=== PATIENT | female | born 1955 | race Asian ===

== ENCOUNTER 2020-07-18 09:22 | Emergency (ER) | payer MEDICAID, MEDICARE ==
[2020-07-18] MEDS ORDERED: Sodium Chloride 0.9% 10 ML Syringe FLUSH PRN (10:02)
[2020-07-18] MEDS ORDERED: Ketorolac 30 MG/ML SDV IVPUSH ONE (10:04)
[2020-07-18] MEDS ORDERED: Metoclopramide 10 MG/2 ML SDV IVPUSH ONE (10:04)
[2020-07-18] MEDS ORDERED: diphenhydrAMINE 50 MG/ML SDV IVPUSH ONE (10:04)
[2020-07-18] MEDS ORDERED: Iopamidol 755 Mg/ML 100 ML Bottle IVPUSH ONE (10:38)
[2020-07-18] MEDS ORDERED: Sodium Chloride 0.9% 10 ML Syringe FLUSH ONE (10:38)
[2020-07-18] MEDS ORDERED: Sodium Chloride 0.9% 100 ML IV SCH (10:45)
--- NOTE | 2020-07-18 12:10 | EDM.PDOC ---
ED HPI GENERAL MEDICAL PROBLEM - General Chief Complaint: Headache Stated Complaint: HEADACHE X 5 DAYS /NECK PAIN Time Seen by Provider: 07/18/20 09:54 Source of Information: Reports: Patient History Limitations: Reports: Language Barrier - History of Present Illness INITIAL COMMENTS - FREE TEXT/NARRATIVE: The patient is speak Estonian and I had the I pad with with court interpreter. She has a headache on the right side of her head and neck for a few days. She also has no energy. She has no fever or chills. She has no cough. She has no chest pain or shortness of breath. She has no abdominal pain, nausea or vomiting. She has generalized weakness. She has a history of A-fib and hypertension. Onset: Gradual Duration: Day(s): Location: Reports: Head Quality: Reports: Ache Severity: Moderate Improves with: Reports: None Worsens with: Reports: None Associated Symptoms: Reports: Headaches. Denies: Chest Pain, Cough, Fever/Chills, Nausea/Vomiting, Shortness of Breath Headache Pain Score (Numeric/FACES): 6 - Related Data Allergies Allergy/AdvReac Type Severity Reaction Status Date / Time No Known Allergies Allergy Verified 07/18/20 09:50 Home Meds: Home Meds Pantoprazole [ProTONIX] 1 tab PO DAILY 09/10/14 [History] Warfarin [Coumadin] 01/25/15 [History] carvediloL [Coreg] 1 tab PO BID 01/25/15 [History] Amiodarone [Cordarone] 200 mg PO DAILY 07/18/20 [History] Bumetanide 0.5 mg PO DAILY 07/18/20 [History] Levothyroxine [Synthroid] 50 mcg PO ACBREAKFAST 07/18/20 [History] Spironolactone [Aldactone] 25 mg PO DAILY 07/18/20 [History] Ubidecarenone [Co Q-10] 100 mg PO DAILY 07/18/20 [History] Valsartan 1 tab PO DAILY 07/18/20 [History] atorvaSTATin [Lipitor] 20 mg PO BEDTIME 07/18/20 [History] lisinopriL [Lisinopril] 1 tab PO DAILY 07/18/20 [History] Past Medical History Endocrine/Metabolic History: Reports: Diabetes, Type II - Past Surgical History Cardiovascular Surgical History: Reports: Other (See Below) 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 Social & Family History - Tobacco Use Smoking Status *Q: Never Smoker - Caffeine Use Caffeine Use: Reports: Coffee - Recreational Drug Use Recreational Drug Use: No ED ROS GENERAL - Review of Systems Review Of Systems: See Below Constitutional: Reports: No Symptoms HEENT: Reports: No Symptoms Respiratory: Reports: No Symptoms Cardiovascular: Reports: No Symptoms Endocrine: Reports: No Symptoms GI/Abdominal: Reports: No Symptoms : Reports: No Symptoms Musculoskeletal: Reports: No Symptoms Skin: Reports: No Symptoms Neurological: Reports: Headache - Physical Exam Exam: See Below Exam Limited By: No Limitations General Appearance: Alert, No Apparent Distress Ears: Normal External Exam Nose: Normal Inspection Head Exam: Atraumatic, Normocephalic Neck: Normal Inspection, Supple, Non-Tender Respiratory/Chest: No Respiratory Distress, Lungs Clear, Normal Breath Sounds Cardiovascular: Regular Rate, Rhythm, No Edema, No Murmur GI/Abdominal: Soft, Non-Tender, No Organomegaly, No Mass Neuro Exam (Abbreviated): Alert, Oriented, No Motor/Sensory Deficits Extremities: Normal Inspection Course - Vital Signs Last Recorded V/S: Last Vital Signs Temp 97.5 F 07/18/20 13:34 Pulse 106 H 07/18/20 13:34 Resp 20 07/18/20 13:34 BP 101/66 07/18/20 13:34 Pulse Ox 95 07/18/20 12:35 - Orders/Labs/Meds Orders: Active Orders 24 hr Category Date Time Status Cardiac Monitoring [RC] . DIRECTED Care 07/18/20 10:02 Active Oxygen Therapy [RC] PRN Care 07/18/20 10:02 Active Peripheral IV Care [RC] . DIRECTED Care 07/18/20 10:03 Active Ang Neck [CT] Stat Exams 07/18/20 10:03 Ordered CXR [Chest 1V Frontal] [CR] Stat Exams 07/18/20 12:09 Taken Head wo Cont [CT] Stat Exams 07/18/20 10:03 Taken Sodium Chloride 0.9% [Normal Saline] 100 ml Med 07/18/20 10:45 Active IV ASDIRECTED Sodium Chloride 0.9% [Saline Flush] Med 07/18/20 10:02 Active 10 ml FLUSH ASDIRECTED PRN Peripheral IV Insertion Adult [OM.PC] Stat Oth 07/18/20 10:02 Ordered Medication Orders Sodium Chloride (Normal Saline) 100 mls @ 60 mls/hr IV ASDIRECTED RUDDY Last Admin: 07/18/20 11:31 Dose: 60 mls/hr Documented by: SERENITY Sodium Chloride (Saline Flush) 10 ml FLUSH ASDIRECTED PRN PRN Reason: Keep Vein Open Last Admin: 07/18/20 10:33 Dose: 10 ml Documented by: DEMARCO Labs: Laboratory Tests 07/18/20 07/18/20 07/18/20 Range/Units 10:47 10:47 10:47 WBC 3.91 L (3.98-10.04) K/mm3 RBC 4.09 (3.98-5.22) M/mm3 Hgb 12.3 (11.2-15.7) gm/dl Hct 37.8 (34.1-44.9) % MCV 92.4 (79.4-94.8) fl MCH 30.1 (25.6-32.2) pg MCHC 32.5 (32.2-35.5) g/dl RDW Std Deviation 44.1 (36.4-46.3) fL Plt Count 163 L (182-369) K/mm3 MPV 10.1 (9.4-12.3) fl Neut % (Auto) 69.0 (34.0-71.1) % Lymph % (Auto) 19.2 L (19.3-51.7) % Ford % (Auto) 10.7 (4.7-12.5) % Eos % (Auto) 0.5 L (0.7-5.8) Baso % (Auto) 0.3 (0.1-1.2) % Neut # (Auto) 2.70 (1.56-6.13) K/mm3 Lymph # (Auto) 0.75 L (1.18-3.74) K/mm3 Ford # (Auto) 0.42 H (0.24-0.36) K/mm3 Eos # (Auto) 0.02 L (0.04-0.36) K/mm3 Baso # (Auto) 0.01 (0.01-0.08) K/mm3 ESR 10 (0-20) mm/hr Sodium 139 D (136-145) mEq/L Potassium 3.7 (3.5-5.1) mEq/L Chloride 104 D (98-107) mEq/L Carbon Dioxide 23 D (21-32) mEq/L Anion Gap 15.7 H (5-15) BUN 10 (7-18) mg/dL Creatinine 1.0 (0.55-1.02) mg/dL Est Cr Clr Drug Dosing TNP Estimated GFR (MDRD) 55 (>60) mL/min BUN/Creatinine Ratio 10.0 L (14-18) Glucose 95 (80-115) mg/dL Calcium 8.2 L D (8.5-10.1) mg/dL Total Bilirubin 0.4 (0.2-1.0) mg/dL AST 45 H (15-37) U/L ALT 71 H (14-59) U/L Alkaline Phosphatase 67 (46-116) U/L C-Reactive Protein 1.2 H* (<1.0) mg/dL Total Protein 7.0 (6.4-8.2) g/dl Albumin 3.5 (3.4-5.0) g/dl Globulin 3.5 gm/dL Albumin/Globulin Ratio 1.0 (1-2) SARS-CoV-2 RNA (MELODY) (NEGATIVE) 07/18/20 Range/Units 11:04 WBC (3.98-10.04) K/mm3 RBC (3.98-5.22) M/mm3 Hgb (11.2-15.7) gm/dl Hct (34.1-44.9) % MCV (79.4-94.8) fl MCH (25.6-32.2) pg MCHC (32.2-35.5) g/dl RDW Std Deviation (36.4-46.3) fL Plt Count (182-369) K/mm3 MPV (9.4-12.3) fl Neut % (Auto) (34.0-71.1) % Lymph % (Auto) (19.3-51.7) % Ford % (Auto) (4.7-12.5) % Eos % (Auto) (0.7-5.8) Baso % (Auto) (0.1-1.2) % Neut # (Auto) (1.56-6.13) K/mm3 Lymph # (Auto) (1.18-3.74) K/mm3 Ford # (Auto) (0.24-0.36) K/mm3 Eos # (Auto) (0.04-0.36) K/mm3 Baso # (Auto) (0.01-0.08) K/mm3 ESR (0-20) mm/hr Sodium (136-145) mEq/L Potassium (3.5-5.1) mEq/L Chloride (98-107) mEq/L Carbon Dioxide (21-32) mEq/L Anion Gap (5-15) BUN (7-18) mg/dL Creatinine (0.55-1.02) mg/dL Est Cr Clr Drug Dosing Estimated GFR (MDRD) (>60) mL/min BUN/Creatinine Ratio (14-18) Glucose (80-115) mg/dL Calcium (8.5-10.1) mg/dL Total Bilirubin (0.2-1.0) mg/dL AST (15-37) U/L ALT (14-59) U/L Alkaline Phosphatase (46-116) U/L C-Reactive Protein (<1.0) mg/dL Total Protein (6.4-8.2) g/dl Albumin (3.4-5.0) g/dl Globulin gm/dL Albumin/Globulin Ratio (1-2) SARS-CoV-2 RNA (MELODY) Positive H (NEGATIVE) Meds: Medications Generic Name Dose Route Start Last Admin Trade Name Freq PRN Reason Stop Dose Admin Sodium Chloride 100 mls @ 60 mls/hr 07/18/20 10:45 07/18/20 11:31 Normal Saline IV 60 mls/hr ASDIRECTED RUDDY Administration Sodium Chloride 10 ml 07/18/20 10:02 07/18/20 10:33 Saline Flush FLUSH 10 ml ASDIRECTED PRN Administration Keep Vein Open Discontinued Medications Generic Name Dose Route Start Last Admin Trade Name Freq PRN Reason Stop Dose Admin Diphenhydramine HCl 50 mg 07/18/20 10:04 07/18/20 10:36 Benadryl IVPUSH 07/18/20 10:05 50 mg ONETIME ONE Administration Iopamidol 100 ml 07/18/20 10:38 07/18/20 11:31 Isovue-370 (76%) IVPUSH 07/18/20 10:39 100 ml ONETIME ONE Administration Ketorolac Tromethamine 30 mg 07/18/20 10:04 07/18/20 10:33 Toradol IVPUSH 07/18/20 10:05 30 mg ONETIME ONE Administration Metoclopramide HCl 10 mg 07/18/20 10:04 07/18/20 10:31 Reglan IVPUSH 07/18/20 10:05 10 mg ONETIME ONE Administration Sodium Chloride 10 ml 07/18/20 10:38 07/18/20 11:31 Saline Flush FLUSH 07/18/20 10:39 10 ml ONETIME ONE Administration - Re-Assessments/Exams Free Text/Narrative Re-Assessment/Exam: 07/18/20 12:09 I ordered an IV saline lock, CT of her head, CT angio of her neck, labs, COVID 19 test, toradol 30mg IV, benadryl 50mg IV and reglan 10mg IV. Her WBC is low at 3.91. Her anion gap is elevated at 15.7. Her AST is elevated at 45. Her ALT is elevated at 71. Her CRP is elevated at 1.2. Her COVID 19 test is positive. I have ordered a CXR. The CT of her head shows mild age related changes but no evidence of acute intracranial pathology. The CT angio of her neck shows normal CT angiogram of the neck. No evidence for dissection or significant vascular stenosis or occlusion. 07/18/20 14:45 She is COVID positive. I ordered a CXR and it shows status post placement of left sided AICD when compared to the previous examination. Heart size is midly prominent. No acute cardiopulmonary disease identified. Her oxygen saturations are good. I feel she is safe to discharge home. Departure - Departure Time of Disposition: 14:50 Disposition: Home, Self-Care 01 Condition: Good Clinical Impression: COVID-19 Headache Qualifiers: Headache type: other headache syndrome Qualified Code(s): G44.89 - Other h eadache syndrome - Discharge Information *PRESCRIPTION DRUG MONITORING PROGRAM REVIEWED*: Not Applicable *COPY OF PRESCRIPTION DRUG MONITORING REPORT IN PATIENT ZION: Not Applicable Referrals: Clark Beth MD [Primary Care Provider] - 1 Week Forms: ED Department Discharge Additional Instructions: Drink plenty of fluids. Take your medication as prescribed. Drink plenty of fluids. Please return if you are worse. Sepsis Event Note (ED) - Evaluation Sepsis Screening Result: No Definite Risk - Focused Exam Vital Signs: Vital Signs Temp Pulse Resp BP Pulse Ox 07/18/20 13:34 97.5 F 106 H 20 101/66 07/18/20 12:35 70 95 07/18/20 09:48 98.8 F 70 18 109/72 98 - My Orders Last 24 Hours: My Active Orders 07/18/20 10:02 Cardiac Monitoring [RC] . DIRECTED Oxygen Therapy [RC] PRN Sodium Chloride 0.9% [Saline Flush] 10 ml FLUSH ASDIRECTED PRN Peripheral IV Insertion Adult [OM.PC] Stat 07/18/20 10:03 Peripheral IV Care [RC] . DIRECTED Ang Neck [CT] Stat Head wo Cont [CT] Stat 07/18/20 10:45 Sodium Chloride 0.9% [Normal Saline] 100 ml IV ASDIRECTED 07/18/20 12:09 CXR [Chest 1V Frontal] [CR] Stat - Assessment/Plan Last 24 Hours: My Active Orders 07/18/20 10:02 Cardiac Monitoring [RC] . DIRECTED Oxygen Therapy [RC] PRN Sodium Chloride 0.9% [Saline Flush] 10 ml FLUSH ASDIRECTED PRN Peripheral IV Insertion Adult [OM.PC] Stat 07/18/20 10:03 Peripheral IV Care [RC] . DIRECTED Ang Neck [CT] Stat Head wo Cont [CT] Stat 07/18/20 10:45 Sodium Chloride 0.9% [Normal Saline] 100 ml IV ASDIRECTED 07/18/20 12:09 CXR [Chest 1V Frontal] [CR] Stat
[2020-07-18 13:38] VITALS: PULSE 106
[2020-07-18 13:41] VITALS: BP 101/66
--- NOTE | 2020-08-18 10:18 | CT ---
PROCEDURE INFORMATION: Exam: CT Head Without Contrast Exam date and time: 07/18/2020 10:40 AM Age: 64 years old Clinical indication: Headache; Patient HX: RT sided head and neck pain TECHNIQUE: Imaging protocol: Computed tomography of the head without contrast. Radiation optimization: All CT scans at this facility use at least one of these dose optimization techniques: automated exposure control; mA and/or kV adjustment per patient size (includes targeted exams where dose is matched to clinical indication); or iterative reconstruction. COMPARISON: CT Head wo Cont 05/22/2014 9:21 PM FINDINGS: Brain: Normal. No hemorrhage. Unremarkable white matter. No mass effect. Cerebral ventricles: No ventriculomegaly. Bones/joints: Unremarkable. No acute fracture. Paranasal sinuses: Visualized sinuses are unremarkable. No fluid levels. Mastoid air cells: Visualized mastoid air cells are well aerated. Soft tissues: Unremarkable. IMPRESSION: No acute intracranial changes. Thank you for allowing us to participate in the care of your patient. Dictated and Authenticated by: Salvador Posey MD 08/17/2020 7:33 PM Central Time ([place] & [place]) [facility]ITAL[facility]
--- NOTE | 2020-08-19 10:31 | CT ---
"PROCEDURE INFORMATION: Exam: CT Angiography Neck With Contrast Exam date and time: 07/18/2020 10:40 AM Age: 64 years old Clinical indication: Other: RT sided head and neck pain TECHNIQUE: Imaging protocol: Computed tomography angiography of the neck with intravenous contrast. 3D rendering (Not supervised by radiologist): MIP and/or 3D reconstructed images were created by the technologist. Radiation optimization: All CT scans at this facility use at least one of these dose optimization techniques: automated exposure control; mA and/or kV adjustment per patient size (includes targeted exams where dose is matched to clinical indication); or iterative reconstruction. COMPARISON: No relevant prior studies available. FINDINGS: Right common carotid artery: No stenosis. No dissection or occlusion. Right internal carotid artery: No stenosis of the extracranial segment. No dissection or occlusion. Right external carotid artery: No occlusion or stenosis of the origin. Right vertebral artery: No stenosis. No dissection or occlusion. Left common carotid artery: No stenosis. No dissection or occlusion. Left internal carotid artery: No stenosis of the extracranial segment. No dissection or occlusion. Left external carotid artery: No occlusion or stenosis of the origin. Left vertebral artery: No stenosis. No dissection or occlusion. Bones/joints: No acute fracture. Soft tissues: Normal. No significant soft tissue swelling. IMPRESSION: Normal CT angiogram of the neck. No evidence for dissection or significant vascular stenosis or occlusion. REFERENCES: ASHLEIGH CUNHA | Final Radiology Report CONFIDENTIALITY STATEMENT This report is intended only for use by the referring physician, and only in accordance with law. If you received this in error, call [phone]. Page 2 of 2 NASCET CRITERIA. The degree of internal carotid artery stenosis is based on NASCET criteria. Normal is no stenosis. Mild is less than 50% stenosis. Moderate is 50-69% stenosis. Severe is 70% to 99% stenosis. Total occlusion is no detectable patent lumen. Thank you for allowing us to participate in the care of your patient. Dictated and Authenticated by: Zeferino Lake MD 08/19/2020 11:03 AM Central Time ([place] & [place]) [facility]"
--- NOTE | 2020-08-19 10:32 | CR ---
PROCEDURE INFORMATION: Exam: XR Chest, 1 View Exam date and time: 07/18/2020 12:52 PM Age: 64 years old Clinical indication: Condition or disease; Other: Covid TECHNIQUE: Imaging protocol: XR of the chest Views: 1 view. COMPARISON: CR Chest 1V Frontal 01/26/2015 8:51 AM FINDINGS: Tubes, catheters and devices: The heart size is moderately enlarged with left- sided AICD present. Lungs: Unremarkable. No consolidation. Pleural space: There is no pneumothorax. Heart/Mediastinum: Heart size is mildly prominent. Bones/joints: Unremarkable. IMPRESSION: Status post placement of left-sided AICD when compared to the previous examination. Heart size is mildly prominent. No acute cardiopulmonary disease identified. Thank you for allowing us to participate in the care of your patient. Dictated and Authenticated by: Zeferino Lake MD 08/19/2020 11:04 AM Central Time ([place] & [place]) [facility]
== END 2020-07-18 16:24 | disposition home or self-care (01) ==
LOC: JD.ED 09:22
DX: G44.89 Other headache syndrome (principal); U07.1 COVID-19; E11.9 Type 2 diabetes mellitus without complications; I48.91 Unspecified atrial fibrillation; I10 Essential (primary) hypertension; Z79.01 Long term (current) use of anticoagulants; Z79.899 Other long term (current) drug therapy; Z20.828 Contact with and (suspected) exposure to other viral communicable diseases
CPT/HCPCS: 36415; 70450; 70498; 71045; 80053; 85025; 85652; 86140; 87635; 96361; 96374; 96375; 99285; J1200; J1885; J2765; J7050; Q9967; 99284; U0002

== ENCOUNTER 2021-07-28 10:44 | Emergency (ER) | payer MEDICARE, MEDICAID ==
--- NOTE | 2021-07-28 10:56 | EDM.PDOC ---
<MaudeZeferino Pat - Last Filed: 07/28/21 10:55> ED HPI GENERAL MEDICAL PROBLEM - General Chief Complaint: Neuro Symptoms/Deficits Stated Complaint: [facility] Time Seen by Provider: 07/28/21 10:55 - Related Data Allergies Allergy/AdvReac Type Severity Reaction Status Date / Time No Known Allergies Allergy Verified 07/28/21 11:01 Home Meds: Home Meds Warfarin [Coumadin] 2 mg PO ASDIRECTED 01/25/15 [History] carvediloL [Coreg] 6.25 tab PO BID 01/25/15 [History] Amiodarone [Cordarone] 100 mg PO DAILY 07/18/20 [History] Bumetanide 0.5 mg PO DAILY 07/18/20 [History] Levothyroxine [Synthroid] 75 mcg PO ACBREAKFAST 07/18/20 [History] Spironolactone [Aldactone] 25 mg PO DAILY 07/18/20 [History] Ubidecarenone [Co Q-10] 100 mg PO DAILY 07/18/20 [History] Valsartan 40 mg PO DAILY 07/18/20 [History] atorvaSTATin [Lipitor] 20 mg PO BEDTIME 07/18/20 [History] Beta-Carotene(A)-Vits C,E/Mins [Vision Vitamins] 1 each PO DAILY 07/28/21 [History] Nitroglycerin 0.4 mg SL ASDIRECTED PRN 07/28/21 [History] Past Medical History Endocrine/Metabolic History: Reports: Diabetes, Type II - Past Surgical History Cardiovascular Surgical History: Reports: Other (See Below) Other Cardiovascular Surgeries/Procedures: implanted classroom monitor Social & Family History - Caffeine Use Caffeine Use: Reports: Coffee Departure - Departure Disposition: DC/Tfer to [facility] Clinical Impression: Non-STEMI (non-ST elevated myocardial infarction) - Discharge Information Referrals: PCP,None [Primary Care Provider] - Forms: ED Department Discharge <Ashkan Jeter - Last Filed: 07/28/21 16:17> ED HPI GENERAL MEDICAL PROBLEM - General Source of Information: Reports: Patient History Limitations: Reports: Language Barrier (She speaks Veitnamise) - History of Present Illness INITIAL COMMENTS - FREE TEXT/NARRATIVE: The patient presents by [facility] for acute onset of dizziness, nausea and vomiting. She also had some chest discomfort. She also says she feels like she needs to have a BM. She has no fever, chills, cough, shortness of breath, abdominal pain. She has no headache. She does have a history of a pacemaker. She has no signs of COVID. She said she had it last year and she had symptoms for only 5 days. She has no swelling or pain in her legs. Onset: Sudden Duration: Minutes: Location: Reports: Chest Quality: Reports: Other (discomfort) Severity: Mild Improves with: Reports: None Worsens with: Reports: None Associated Symptoms: Reports: Chest Pain, Nausea/Vomiting. Denies: Cough, Fever/Chills, Headaches, Shortness of Breath Middle Chest Pain Score (Numeric/FACES): 3 ED ROS GENERAL - Review of Systems Review Of Systems: See Below Constitutional: Reports: No Symptoms HEENT: Reports: No Symptoms Respiratory: Reports: No Symptoms Cardiovascular: Reports: Chest Pain Endocrine: Reports: No Symptoms GI/Abdominal: Reports: Nausea, Vomiting. Denies: Abdominal Pain : Reports: No Symptoms Neurological: Reports: Dizziness ED EXAM, GENERAL - Physical Exam Exam: See Below Exam Limited By: No Limitations General Appearance: Alert, No Apparent Distress Eye Exam: Right Eye: Nystagmus, Bilateral Eye: EOMI Ears: Normal External Exam Nose: Normal Inspection Head: Atraumatic, Normocephalic Neck: Normal Inspection Respiratory/Chest: No Respiratory Distress, Lungs Clear, Normal Breath Sounds Cardiovascular: Regular Rate, Rhythm, No Edema, No Murmur GI/Abdominal: Soft, Non-Tender, No Organomegaly, No Mass Back Exam: Normal Inspection Extremities: Normal Inspection Neurological: Alert, Oriented, No Motor/Sensory Deficits #1 Interpretation EKG Date: 07/28/21 Time: 11:18 Rhythm: Other (atrial paced rhythm) Rate (Beats/Min): 70 Jackson: LAD-Left Jackson Deviation P-Wave: Present QRS: Normal ST-T: Normal QT: Normal EKG Interpretation Comments: Q waves in the inferior leads Course - Vital Signs Last Recorded V/S: Last Vital Signs Temp 96.7 F L 07/28/21 10:54 Pulse 70 07/28/21 14:00 Resp 20 07/28/21 14:00 BP 114/81 07/28/21 14:00 Pulse Ox 99 07/28/21 14:00 - Orders/Labs/Meds Orders: Active Orders 24 hr Category Date Time Status ED Antiemetic Medication Reflex [OM.PC] Stat Oth 07/28/21 11:04 Ordered Peripheral IV Insertion Adult [OM.PC] Stat Oth 07/28/21 11:03 Ordered Labs: Laboratory Tests 07/28/21 07/28/21 07/28/21 Range/Units 12:00 12:00 12:00 WBC 9.93 (3.98-10.04) K/mm3 RBC 4.17 (3.98-5.22) M/mm3 Hgb 12.4 (11.2-15.7) gm/dl Hct 38.5 (34.1-44.9) % MCV 92.3 (79.4-94.8) fl MCH 29.7 (25.6-32.2) pg MCHC 32.2 (32.2-35.5) g/dl RDW Std Deviation 45.1 (36.4-46.3) fL Plt Count 230 (182-369) K/mm3 MPV 10.1 (9.4-12.3) fl Neut % (Auto) 71.4 H (34.0-71.1) % Lymph % (Auto) 17.7 L (19.3-51.7) % Towns % (Auto) 10.1 (4.7-12.5) % Eos % (Auto) 0.4 L (0.7-5.8) Baso % (Auto) 0.2 (0.1-1.2) % Neut # (Auto) 7.09 H (1.56-6.13) K/mm3 Lymph # (Auto) 1.76 (1.18-3.74) K/mm3 Towns # (Auto) 1.00 H (0.24-0.36) K/mm3 Eos # (Auto) 0.04 (0.04-0.36) K/mm3 Baso # (Auto) 0.02 (0.01-0.08) K/mm3 PT 30.4 H (9.7-12.0) SECONDS INR 2.85 APTT 38.2 H (21.7-31.4) SECONDS D-Dimer, Quantitative < 0.19 L (0.19-0.50) mg/L Sodium 142 (136-145) mEq/L Potassium 3.4 L (3.5-5.1) mEq/L Chloride 107 (98-107) mEq/L Carbon Dioxide 26 (21-32) mEq/L Anion Gap 12.4 (5-15) BUN 17 (7-18) mg/dL Creatinine 0.9 (0.55-1.02) mg/dL Est Cr Clr Drug Dosing TNP Estimated GFR (MDRD) > 60 (>60) mL/min BUN/Creatinine Ratio 18.9 H (14-18) Glucose 101 H (70-99) mg/dL Lactic Acid (0.4-2.0) mmol/L Calcium 8.6 (8.5-10.1) mg/dL Magnesium 2.1 (1.8-2.4) mg/dL Total Bilirubin 0.5 (0.2-1.0) mg/dL AST 31 (15-37) U/L ALT 39 (14-59) U/L Alkaline Phosphatase 64 (46-116) U/L Troponin I 3.548 H* (0.00-0.056) ng/mL C-Reactive Protein <0.2 (<1.0) mg/dL NT-Pro-B Natriuret Pep (0-125) pg/mL Total Protein 6.9 (6.4-8.2) g/dl Albumin 3.5 (3.4-5.0) g/dl Globulin 3.4 gm/dL Albumin/Globulin Ratio 1.0 (1-2) Lipase 147 (73-393) U/L SARS-CoV-2 RNA (MELODY) (NEGATIVE) 07/28/21 07/28/21 07/28/21 Range/Units 12:00 12:00 12:52 WBC (3.98-10.04) K/mm3 RBC (3.98-5.22) M/mm3 Hgb (11.2-15.7) gm/dl Hct (34.1-44.9) % MCV (79.4-94.8) fl MCH (25.6-32.2) pg MCHC (32.2-35.5) g/dl RDW Std Deviation (36.4-46.3) fL Plt Count (182-369) K/mm3 MPV (9.4-12.3) fl Neut % (Auto) (34.0-71.1) % Lymph % (Auto) (19.3-51.7) % Towns % (Auto) (4.7-12.5) % Eos % (Auto) (0.7-5.8) Baso % (Auto) (0.1-1.2) % Neut # (Auto) (1.56-6.13) K/mm3 Lymph # (Auto) (1.18-3.74) K/mm3 Towns # (Auto) (0.24-0.36) K/mm3 Eos # (Auto) (0.04-0.36) K/mm3 Baso # (Auto) (0.01-0.08) K/mm3 PT (9.7-12.0) SECONDS INR APTT (21.7-31.4) SECONDS D-Dimer, Quantitative (0.19-0.50) mg/L Sodium (136-145) mEq/L Potassium (3.5-5.1) mEq/L Chloride (98-107) mEq/L Carbon Dioxide (21-32) mEq/L Anion Gap (5-15) BUN (7-18) mg/dL Creatinine (0.55-1.02) mg/dL Est Cr Clr Drug Dosing Estimated GFR (MDRD) (>60) mL/min BUN/Creatinine Ratio (14-18) Glucose (70-99) mg/dL Lactic Acid 2.0 (0.4-2.0) mmol/L Calcium (8.5-10.1) mg/dL Magnesium (1.8-2.4) mg/dL Total Bilirubin (0.2-1.0) mg/dL AST (15-37) U/L ALT (14-59) U/L Alkaline Phosphatase (46-116) U/L Troponin I (0.00-0.056) ng/mL C-Reactive Protein (<1.0) mg/dL NT-Pro-B Natriuret Pep 852 H (0-125) pg/mL Total Protein (6.4-8.2) g/dl Albumin (3.4-5.0) g/dl Globulin gm/dL Albumin/Globulin Ratio (1-2) Lipase (73-393) U/L SARS-CoV-2 RNA (MELODY) Negative (NEGATIVE) Meds: Medications Discontinued Medications Generic Name Dose Route Start Last Admin Trade Name Mikalq PRN Reason Stop Dose Admin Aspirin 324 mg 07/28/21 12:53 07/28/21 13:10 Aspirin 81 Mg Tab.Chew PO 07/28/21 12:54 324 mg ONETIME ONE Administration Heparin Sodium (Porcine) 3,180 units 07/28/21 12:54 07/28/21 13:10 Heparin Sodium 5,000 Units/Ml Vial IVPUSH 07/28/21 12:55 3,180 units .BOLUS ONE Administration Sodium Chloride 1,000 mls @ 125 mls/hr 07/28/21 11:15 07/28/21 11:24 Normal Saline IV 125 mls/hr ASDIRECTED RUDDY Administration Heparin Sodium/Dextrose 25,000 units in 500 mls @ 19.105 mls/hr 07/28/21 13:00 07/28/21 13:12 Heparin 25,000 Units In D5w 500 Ml IV 18 units/kg/hr TITRATE RUDDY 19.105 mls/hr Administration Protocol 18 UNITS/KG/HR Meclizine HCl 25 mg 07/28/21 11:05 07/28/21 11:25 Meclizine 25 Mg Tab.Chew PO 07/28/21 11:06 25 mg ONETIME ONE Administration Ondansetron HCl 4 mg 07/28/21 11:03 07/28/21 11:24 Ondansetron 4 Mg/2 Ml Sdv IVPUSH 07/28/21 11:04 4 mg ONETIME ONE Administration Sodium Chloride 10 ml 07/28/21 11:03 07/28/21 11:24 Sodium Chloride 0.9% 10 Ml Syringe FLUSH 10 ml ASDIRECTED PRN Administration Keep Vein Open - Re-Assessments/Exams Free Text/Narrative Re-Assessment/Exam: 07/28/21 13:25 I ordered an IV NS at 125mL/hr, zofran 4mg IV, antivert 25mg, EKG, CXR, CT of her head and labs. Her EKG shows a paced rhythm with no acute changes. Her CT shows slight atherosclerotic calcification within the carotid siphon. Nothing acute is appreciated on noncontrast head CT exam. Her CXR shows cardiomegaly with AICD. Pulmonary vessels are minimally increased. Please correlate if his is chronic. No additional abnormality is appreciated. Her CBC looks good. Her INR is therapeutic at 2.85. Her D-dimer is negative. Her K is a little low at 3.4. Her lactic acid is negative. Her troponin is elevated at 3.548. Her CRP is negative. Her BNP is elevated at 852. Her lipase is normal. I have ordered a COVID swab, aspirin and a heparin bolus and drip. 07/28/21 14:01 She is COVID 19 negative. She sees a resource manager forester at [place]. I will call there for her to be transferred. 07/28/21 15:[address] Saunders the resource manager forester director consumer and Dr Rosen and they accepted the patient. I will send her my ambulance. Departure - Departure Time of Disposition: 15:30 Condition: Serious Sepsis Event Note (ED) - Focused Exam Vital Signs: Vital Signs Temp Pulse Resp BP Pulse Ox 07/28/21 14:00 70 20 114/81 99 07/28/21 13:18 70 16 108/69 100 07/28/21 10:54 96.7 F L 72 16 107/74 98 - My Orders Last 24 Hours: My Active Orders 07/28/21 11:03 Peripheral IV Insertion Adult [OM.PC] Stat 07/28/21 11:04 ED Antiemetic Medication Reflex [OM.PC] Stat - Assessment/Plan Last 24 Hours: My Active Orders 07/28/21 11:03 Peripheral IV Insertion Adult [OM.PC] Stat 07/28/21 11:04 ED Antiemetic Medication Reflex [OM.PC] Stat
[2021-07-28] MEDS ORDERED: Ondansetron 4 MG/2 ML SDV IVPUSH ONE (11:03)
[2021-07-28] MEDS ORDERED: Sodium Chloride 0.9% 10 ML Syringe FLUSH PRN (11:03)
[2021-07-28] MEDS ORDERED: Sodium Chloride 0.9% 1,000 ML IV SCH (11:15)
--- NOTE | 2021-07-28 12:00 | CT ---
Head CT Technique: Multiple axial sections of the brain were obtained. Intravenous contrast was not utilized. Reconstructed coronal and sagittal images were obtained. Comparison: Prior head CT study of 05/22/14. Findings: Ventricles along with basal cisterns and sulci over the convexities appear within normal limits for the patient's age. No abnormal parenchymal densities are seen. No evidence of intracranial hemorrhage is seen. No midline shift or mass-effect is seen. Mild atherosclerotic calcification is seen within the carotid siphon. Visualized mastoid sinuses and paranasal sinuses show nothing acute. No acute calvarial abnormality is appreciated. Impression: 1. Slight atherosclerotic calcification within the carotid siphon. 2. Nothing acute is appreciated on noncontrast head CT exam. Diagnostic code #2
--- NOTE | 2021-07-28 12:09 | CR ---
Chest: Portable view of the chest was obtained. Comparison: Prior chest x-ray of 01/26/15. Heart is enlarged. Slight tortuosity of the thoracic aorta is seen. AICD is present. Pulmonary vessels are minimally increased. Lungs are clear with no acute parenchymal change. No definite acute bony abnormality is appreciated. Impression: 1. Cardiomegaly with AICD. 2. Pulmonary vessels are minimally increased. Please correlate if this is chronic. 3. No additional abnormality is appreciated. Diagnostic code #3
[2021-07-28] MEDS ORDERED: Aspirin 81 MG Tab.Chew PO ONE (12:53)
[2021-07-28] MEDS ORDERED: Heparin Sodium 5,000 Units/ML Vial IVPUSH ONE (12:54)
[2021-07-28] MEDS ORDERED: Heparin Sodium/D5W 25,000 UNITS/500 ML BAG IV SCH (13:00)
[2021-07-28 13:18] VITALS: PULSE 70
[2021-07-28 14:01] VITALS: BP 114/81
== END 2021-07-28 15:35 ==
LOC: JD.ED 10:44
DX: I21.4 Non-ST elevation (NSTEMI) myocardial infarction (principal); E11.9 Type 2 diabetes mellitus without complications; Z79.899 Other long term (current) drug therapy; Z20.822 Contact with and (suspected) exposure to COVID-19
CPT/HCPCS: 36415; 70450; 71045; 80053; 83605; 83690; 83735; 83880; 84484; 85025; 85379; 85610; 85730; 86140; 93005; 96365; 96366; 96375; 99285; A9270; J1644; J2405; J7030; U0002

== ENCOUNTER 2022-10-03 20:11 | Emergency (ER) | payer MEDICARE, MEDICAID ==
[2022-10-03] MEDS ORDERED: Ondansetron 4 MG/2 ML SDV ONE (20:15)
[2022-10-03] MEDS ORDERED: Ondansetron 4 MG/2 ML SDV IVPUSH ONE (20:16)
[2022-10-03] MEDS ORDERED: Norepinephrine 4 MG/4 ML SDV ONE (20:39)
[2022-10-03] MEDS: Norepinephrine 4 MG in Dextrose 5% in Water 246 ML IV SCH ×2 (20:50)
[2022-10-03] MEDS ORDERED: Ketorolac 30 MG/ML SDV IVPUSH STA (20:56)
[2022-10-03 21:38] LABS: CORONAVIRUS COVID-19 NAA POSITIVE (NEGATIVE)
[2022-10-03] MEDS ORDERED: Sodium Chloride 0.9% 1,000 ML IV ONE (23:22)
[2022-10-03] MEDS ORDERED: cefTRIAXone 1 GM in Sodium Chloride 0.9% 100 ML IV STA (23:27)
[2022-10-03] MEDS ORDERED: Azithromycin 500 MG in Sodium Chloride 0.9% 250 ML IV STA (23:28)
[2022-10-04] MEDS ORDERED: Acetaminophen 325 MG Tab PO ONE (00:02)
[2022-10-04] MEDS: Norepinephrine 4 MG in Dextrose 5% in Water 246 ML IV SCH ×2 (00:37)
[2022-10-04] MEDS ORDERED: Metoclopramide 10 MG/2 ML SDV IVPUSH STA (00:57)
[2022-10-04] MEDS ORDERED: Propofol 200 MG/20 ML SDV IVPUSH ONE (01:20)
[2022-10-04] MEDS ORDERED: Rocuronium 50 MG/5 ML Vial IVPUSH ONE (01:20)
[2022-10-04] MEDS ORDERED: propofoL 100 ML ONE ×3 (01:26→16:21)
[2022-10-04] MEDS: propofoL 100 ML IV SCH ×5 (01:33→22:41)
[2022-10-04] MEDS ORDERED: Heparin Sodium 5,000 Units/ML Vial IVPUSH STA (04:48)
[2022-10-04] MEDS ORDERED: Heparin Sodium/D5W 25,000 UNITS/500 ML BAG IV SCH ×2 (05:00→20:30)
[2022-10-04] MEDS ORDERED: Rocuronium 50 MG/5 ML Vial IVPUSH STA (05:28)
[2022-10-04] MEDS: Norepinephrine 16 MG in Dextrose 5% in Water 234 ML IV SCH ×2 (07:58)
[2022-10-04] MEDS ORDERED: POTASSIUM CHLORIDE ONE (17:38)
[2022-10-04] MEDS: Potassium Chloride 10 MEQ in Premix Bag 1 BAG IV SCH ×6 (17:40→22:57)
[2022-10-05] MEDS: propofoL 100 ML IV SCH ×4 (08:16→20:56)
[2022-10-05] MEDS ORDERED: REMDESIVIR 200 MG in Sodium Chloride 0.9% 250 ML IV ONE ×2 (10:27→12:30)
[2022-10-05] MEDS: Norepinephrine 16 MG in Dextrose 5% in Water 234 ML IV SCH ×2 (11:14)
[2022-10-05] MEDS ORDERED: Heparin Sodium 5,000 Units/ML Vial IVPUSH ONE (17:04)
[2022-10-05] MEDS ORDERED: cefTRIAXone 1 GM in Sodium Chloride 0.9% 100 ML IV ONE (18:46)
[2022-10-05 22:55] VITALS: BP 112/71; PULSE 70
== END 2022-10-05 21:33 ==
LOC: JD.ED 20:11 → UNDOADMIN 10-04 11:25 → JD.OB 10-04 11:25 → JD.ED 10-05 21:33
DX: I46.9 Cardiac arrest, cause unspecified (principal); U07.1 COVID-19; I95.9 Hypotension, unspecified; E11.65 Type 2 diabetes mellitus with hyperglycemia; E87.20 Acidosis, unspecified; N28.9 Disorder of kidney and ureter, unspecified; E87.6 Hypokalemia; R77.8 Other specified abnormalities of plasma proteins; R91.8 Other nonspecific abnormal finding of lung field; I11.0 Hypertensive heart disease with heart failure; I50.9 Heart failure, unspecified; E78.00 Pure hypercholesterolemia, unspecified; I25.2 Old myocardial infarction; E03.9 Hypothyroidism, unspecified; Z79.01 Long term (current) use of anticoagulants; Z79.899 Other long term (current) drug therapy; Z86.16 Personal history of COVID-19
CPT/HCPCS: 0241U; 31500; 36415; 36556; 36600; 43752; 70450; 71045; 80048; 80053; 81001; 82803; 83605; 83690; 83735; 83880; 84484; 85007; 85027; 85610; 85730; 87040; 87077; 87154; 87181; 87186; 92950; 93005; 96365; 96368; 96375; 99285; A9270; J0248; J0456; J0696; J1644; J1885; J2405; J2704; J2765; J3480; J7030; J7050; J7060; 93010; J3490

== ENCOUNTER 2022-12-24 09:40 | Inpatient (IN) | payer MEDICAID, MEDICARE ==
[2022-12-24] MEDS ORDERED: Sodium Chloride 0.9% 1,000 ML IV ONE (10:45)
[2022-12-24] MEDS ORDERED: Diltiazem 25 MG/5 ML SDV IVPUSH STA (10:46)
[2022-12-24] MEDS ORDERED: Iopamidol 612 MG/ML 100 ML Bottle IVPUSH ONE (11:05)
[2022-12-24 11:51] LABS: ESTIMATED GFR 69 mL/min (>60)
[2022-12-24] MEDS: Diltiazem 125 MG in Sodium Chloride 0.9% 100 ML IV SCH (13:21)
[2022-12-24] MEDS ORDERED: Ondansetron 4 MG Tab.DIS PO PRN (16:27)
[2022-12-24] MEDS ORDERED: Sodium Chloride 0.9% 1,000 ML IV SCH (16:30)
[2022-12-24] MEDS ORDERED: Warfarin 2.5 MG Tab PO SCH (16:30)
[2022-12-24] MEDS ORDERED: Insulin Regular, Human 100 Units/ML 3 ML Vial SUBCUT SCH (19:00)
[2022-12-24] MEDS: Carvedilol 6.25 MG Tab PO SCH (20:02)
[2022-12-24] MEDS: atorvaSTATin 40 MG Tab PO SCH (20:02)
[2022-12-25] MEDS: Levothyroxine 75 MCG Tab PO SCH (06:10)
[2022-12-25] MEDS: Pantoprazole 40 MG Tab.CR PO SCH (06:10)
[2022-12-25] MEDS: Insulin Regular, Human 100 Units/ML 3 ML Vial SUBCUT SCH ×3 (06:15→18:07)
[2022-12-25] MEDS: Carvedilol 6.25 MG Tab PO SCH ×2 (08:56→20:29)
[2022-12-25] MEDS: Empagliflozin 10 MG Tab PO SCH (08:56)
[2022-12-25] MEDS: Aspirin 81 MG Tab.Chew PO SCH (08:56)
[2022-12-25] MEDS: Bisacodyl 5 MG Tab PO PRN (13:32)
[2022-12-25] MEDS: Acetaminophen 325 MG Tab PO PRN (13:33)
[2022-12-25 13:45] LABS: HEMOGLOBIN A1C 6.3 %
[2022-12-25] MEDS ORDERED: Warfarin 3 MG Tab PO SCH (18:00)
[2022-12-25] MEDS: Indomethacin 25 MG Cap PO SCH (18:04)
[2022-12-25] MEDS: atorvaSTATin 40 MG Tab PO SCH (20:29)
[2022-12-26] MEDS: Pantoprazole 40 MG Tab.CR PO SCH (05:48)
[2022-12-26] MEDS: Levothyroxine 75 MCG Tab PO SCH (05:48)
[2022-12-26] MEDS: Insulin Regular, Human 100 Units/ML 3 ML Vial SUBCUT SCH ×3 (06:02→17:17)
[2022-12-26] MEDS ORDERED: Lactated Ringers 500 ML IV ONE ×2 (07:00→09:15)
[2022-12-26] MEDS: Nitroglycerin 0.4 MG Tab.SL SL PRN ×2 (07:19→07:25)
[2022-12-26] MEDS: Diltiazem 125 MG in Sodium Chloride 0.9% 100 ML IV SCH (08:01)
[2022-12-26] MEDS: Amiodarone 200 MG Tab PO SCH (08:56)
[2022-12-26] MEDS: Aspirin 81 MG Tab.Chew PO SCH (09:05)
[2022-12-26] MEDS: Empagliflozin 10 MG Tab PO SCH (09:05)
[2022-12-26] MEDS: Carvedilol 6.25 MG Tab PO SCH (09:05)
[2022-12-26] MEDS ORDERED: oxyCODONE 5 MG Tab PO PRN (11:50)
[2022-12-26] MEDS: Indomethacin 25 MG Cap PO SCH ×2 (12:53→17:15)
[2022-12-26] MEDS: Norepinephrine 4 MG in Dextrose 5% in Water 246 ML IV SCH ×2 (17:00)
[2022-12-26] MEDS ORDERED: Warfarin 3 MG Tab PO SCH (18:00)
[2022-12-26] MEDS: atorvaSTATin 40 MG Tab PO SCH (20:58)
[2022-12-26] MEDS ORDERED: Carvedilol 6.25 MG Tab PO SCH (21:00)
[2022-12-26] MEDS ORDERED: Carvedilol 12.5 MG Tab PO ONE (21:30)
[2022-12-26] MEDS: LORazepam 1 MG Tab PO PRN (23:32)
[2022-12-27] MEDS: Pantoprazole 40 MG Tab.CR PO SCH (06:32)
[2022-12-27] MEDS: Levothyroxine 75 MCG Tab PO SCH (06:32)
[2022-12-27] MEDS: Insulin Regular, Human 100 Units/ML 3 ML Vial SUBCUT SCH ×3 (06:39→17:20)
[2022-12-27] MEDS: Carvedilol 6.25 MG Tab PO SCH ×3 (07:28→20:19)
[2022-12-27] MEDS: Norepinephrine 4 MG in Dextrose 5% in Water 246 ML IV SCH ×4 (07:58→20:20)
[2022-12-27] MEDS: Amiodarone 200 MG Tab PO SCH (09:06)
[2022-12-27] MEDS: Indomethacin 25 MG Cap PO SCH ×2 (09:06→17:21)
[2022-12-27] MEDS: Empagliflozin 10 MG Tab PO SCH (09:07)
[2022-12-27] MEDS: Aspirin 81 MG Tab.Chew PO SCH (09:07)
[2022-12-27] MEDS ORDERED: Warfarin 3 MG Tab PO SCH (18:00)
[2022-12-27] MEDS ORDERED: Norepinephrine 4 MG/4 ML SDV ONE (19:15)
[2022-12-27] MEDS: atorvaSTATin 40 MG Tab PO SCH (20:19)
[2022-12-27] MEDS: LORazepam 1 MG Tab PO PRN (20:19)
[2022-12-27] MEDS: Diltiazem 125 MG in Sodium Chloride 0.9% 100 ML IV SCH (20:20)
[2022-12-28] MEDS: Indomethacin 25 MG Cap PO SCH ×2 (06:32→17:01)
[2022-12-28] MEDS: Levothyroxine 75 MCG Tab PO SCH (06:32)
[2022-12-28] MEDS: Insulin Regular, Human 100 Units/ML 3 ML Vial SUBCUT SCH ×3 (06:32→17:03)
[2022-12-28] MEDS: Pantoprazole 40 MG Tab.CR PO SCH (06:32)
[2022-12-28] MEDS: Carvedilol 6.25 MG Tab PO SCH ×2 (09:11→20:10)
[2022-12-28] MEDS: Aspirin 81 MG Tab.Chew PO SCH (09:11)
[2022-12-28] MEDS: Empagliflozin 10 MG Tab PO SCH (09:11)
[2022-12-28] MEDS: Bisacodyl 5 MG Tab PO PRN (09:12)
[2022-12-28] MEDS ORDERED: Digoxin 250 MCG Tab PO ONE (09:30)
[2022-12-28] MEDS: Norepinephrine 4 MG in Dextrose 5% in Water 246 ML IV SCH ×2 (13:34)
[2022-12-28] MEDS: Calcium Carbonate/Vitamin D3 600 MG-200 Units Tab PO SCH (17:01)
[2022-12-28] MEDS: atorvaSTATin 40 MG Tab PO SCH (20:10)
[2022-12-29] MEDS: Levothyroxine 75 MCG Tab PO SCH (06:11)
[2022-12-29] MEDS: Pantoprazole 40 MG Tab.CR PO SCH (06:11)
[2022-12-29] MEDS: Indomethacin 25 MG Cap PO SCH ×2 (06:42→18:08)
[2022-12-29] MEDS: Calcium Carbonate/Vitamin D3 600 MG-200 Units Tab PO SCH ×2 (06:42→18:07)
[2022-12-29] MEDS: Insulin Regular, Human 100 Units/ML 3 ML Vial SUBCUT SCH ×3 (06:49→18:08)
[2022-12-29] MEDS ORDERED: Digoxin 125 MCG Tab PO SCH (09:00)
[2022-12-29] MEDS: Carvedilol 6.25 MG Tab PO SCH (09:48)
[2022-12-29] MEDS: Empagliflozin 10 MG Tab PO SCH (09:48)
[2022-12-29] MEDS: Aspirin 81 MG Tab.Chew PO SCH (09:49)
[2022-12-29] MEDS ORDERED: Carvedilol 6.25 MG Tab PO SCH (18:00)
[2022-12-29] MEDS: atorvaSTATin 40 MG Tab PO SCH (20:08)
[2022-12-30] MEDS: Levothyroxine 75 MCG Tab PO SCH (06:34)
[2022-12-30] MEDS: Pantoprazole 40 MG Tab.CR PO SCH (06:34)
[2022-12-30] MEDS: Calcium Carbonate/Vitamin D3 600 MG-200 Units Tab PO SCH ×2 (06:46→17:51)
[2022-12-30] MEDS: Indomethacin 25 MG Cap PO SCH (06:46)
[2022-12-30] MEDS: Insulin Regular, Human 100 Units/ML 3 ML Vial SUBCUT SCH ×5 (06:52→17:27)
[2022-12-30] MEDS: Metoprolol Tartrate 25 MG Tab PO SCH ×3 (08:42→20:53)
[2022-12-30] MEDS: Aspirin 81 MG Tab.Chew PO SCH (08:43)
[2022-12-30] MEDS: Empagliflozin 10 MG Tab PO SCH (08:44)
[2022-12-30] MEDS: Bisacodyl 5 MG Tab PO PRN (11:37)
[2022-12-30] MEDS ORDERED: Furosemide 20 MG/2 ML VIAL IVPUSH ONE (12:28)
[2022-12-30] MEDS ORDERED: Warfarin 3 MG Tab PO SCH (18:00)
[2022-12-30] MEDS: atorvaSTATin 40 MG Tab PO SCH (20:53)
[2022-12-31] MEDS: Metoprolol Tartrate 25 MG Tab PO SCH ×4 (03:01→20:13)
[2022-12-31] MEDS: Levothyroxine 75 MCG Tab PO SCH (06:20)
[2022-12-31] MEDS: Pantoprazole 40 MG Tab.CR PO SCH (06:20)
[2022-12-31] MEDS: Calcium Carbonate/Vitamin D3 600 MG-200 Units Tab PO SCH ×2 (06:27→16:30)
[2022-12-31] MEDS: Insulin Regular, Human 100 Units/ML 3 ML Vial SUBCUT SCH ×3 (06:33→17:47)
[2022-12-31] MEDS: Bisacodyl 5 MG Tab PO PRN (08:17)
[2022-12-31] MEDS: Empagliflozin 10 MG Tab PO SCH (08:17)
[2022-12-31] MEDS: Aspirin 81 MG Tab.Chew PO SCH (08:18)
[2022-12-31] MEDS ORDERED: Furosemide 20 MG/2 ML VIAL IVPUSH ONE (12:41)
[2022-12-31] MEDS ORDERED: Warfarin 3 MG Tab PO SCH (18:00)
[2022-12-31] MEDS: atorvaSTATin 40 MG Tab PO SCH (20:15)
[2022-12-31] MEDS ORDERED: Amiodarone 200 MG Tab PO SCH (21:00)
[2023-01-01] MEDS: Metoprolol Tartrate 25 MG Tab PO SCH (02:02)
[2023-01-01] MEDS: Acetaminophen 325 MG Tab PO PRN (04:07)
[2023-01-01] MEDS: Pantoprazole 40 MG Tab.CR PO SCH (05:55)
[2023-01-01] MEDS: Levothyroxine 75 MCG Tab PO SCH (05:55)
[2023-01-01] MEDS: Calcium Carbonate/Vitamin D3 600 MG-200 Units Tab PO SCH (06:33)
[2023-01-01] MEDS: Insulin Regular, Human 100 Units/ML 3 ML Vial SUBCUT SCH ×2 (06:34→11:51)
[2023-01-01] MEDS: Aspirin 81 MG Tab.Chew PO SCH (08:46)
[2023-01-01] MEDS: Empagliflozin 10 MG Tab PO SCH (08:46)
[2023-01-01] MEDS ORDERED: Metoprolol Succinate 25 MG Tab.ER PO SCH (09:00)
[2023-01-01] MEDS ORDERED: Spironolactone 25 MG Tab PO SCH (09:00)
[2023-01-01] MEDS ORDERED: Amiodarone 200 MG Tab PO SCH (11:00)
[2023-01-01 12:10] VITALS: BP 93/64; PULSE 83
[2023-01-01] MEDS ORDERED: Warfarin 3 MG Tab PO SCH (18:00)
[2023-01-02] MEDS ORDERED: Bumetanide 1 MG Tab PO SCH (09:00)
== END 2023-01-01 16:00 | disposition home or self-care (01) | DRG 308 ==
LOC: JD.ED 09:40 → JD.ICU 16:28
PROVIDERS: ADMIT Internal Medicine; ATTEND Internal Medicine
PROC: 02HV33Z Insertion of Infusion Device into Superior Vena Cava, Percutaneous Approach (ICD-10-PCS; principal; 2022-12-26)
DX: I48.91 Unspecified atrial fibrillation (principal); I48.0 Paroxysmal atrial fibrillation; I50.9 Heart failure, unspecified; I50.23 Acute on chronic systolic (congestive) heart failure; I42.8 Other cardiomyopathies; E11.9 Type 2 diabetes mellitus without complications; E03.9 Hypothyroidism, unspecified; E78.5 Hyperlipidemia, unspecified; Z66 Do not resuscitate; E78.00 Pure hypercholesterolemia, unspecified; I11.0 Hypertensive heart disease with heart failure; K59.09 Other constipation; I95.9 Hypotension, unspecified; K86.89 Other specified diseases of pancreas; I48.92 Unspecified atrial flutter; I25.10 Atherosclerotic heart disease of native coronary artery without angina pectoris; Z79.01 Long term (current) use of anticoagulants; Z79.82 Long term (current) use of aspirin; Z79.899 Other long term (current) drug therapy; Z95.810 Presence of automatic (implantable) cardiac defibrillator; Z86.16 Personal history of COVID-19; I25.2 Old myocardial infarction; Z98.890 Other specified postprocedural states
CPT/HCPCS: 36415; 71045; 74177; 80053; 83735; 83880; 84484; 85025; 85379; 85610; 85730; 93005; 96361; 96365; 96366; 96376; 99285; J3490 ×3; J7030; Q9967; 36556; 80048; 80162; 82947; 83036; 93010; 97116-GP; 97162-GP; 97166-GO; 97530-GO; 99222; 99231; 99232; 99233; 99238; A9270-GY; J0282; J1815-GY; J1940; J7060; J7120

== ENCOUNTER 2023-01-02 17:20 | Emergency (ER) | payer MEDICAID, MEDICARE ==
[2023-01-02] MEDS ORDERED: Sodium Chloride 0.9% 10 ML Syringe FLUSH PRN (17:30)
[2023-01-02] MEDS ORDERED: Sodium Chloride 0.9% 500 ML IV ONE (18:51)
[2023-01-02] MEDS ORDERED: Enoxaparin 60 MG/0.6 ML Syringe SUBCUT ONE (20:45)
[2023-01-02] MEDS ORDERED: Sodium Chloride 0.9% 250 ML IV ONE (20:54)
[2023-01-02 22:06] VITALS: BP 96/76; PULSE 100
== END 2023-01-02 21:22 ==
LOC: JD.ED 17:20
DX: I48.91 Unspecified atrial fibrillation (principal); E78.00 Pure hypercholesterolemia, unspecified; E11.9 Type 2 diabetes mellitus without complications; I11.0 Hypertensive heart disease with heart failure; I50.9 Heart failure, unspecified; I25.2 Old myocardial infarction; E03.9 Hypothyroidism, unspecified; Z95.0 Presence of cardiac pacemaker; Z79.899 Other long term (current) drug therapy; Z79.01 Long term (current) use of anticoagulants; Z79.82 Long term (current) use of aspirin
CPT/HCPCS: 36415; 71045; 80053; 83735; 84443; 84484; 85025; 85610; 93005; 96360; 96372; 99285; J0282; J1650; J3490; J7030; 93010

== ENCOUNTER 2023-01-31 09:30 | Emergency (ER) | payer MEDICARE, MEDICAID ==
[2023-01-31 09:53] VITALS: BP 101/63; PULSE 70
[2023-01-31] MEDS ORDERED: Sodium Chloride 0.9% 10 ML Syringe FLUSH PRN (10:04)
[2023-01-31] MEDS ORDERED: Sodium Chloride 0.9% 1,000 ML IV SCH (10:15)
[2023-01-31 11:32] LABS: ESTIMATED GFR 54 mL/min (>60)
== END 2023-01-31 11:45 | disposition home or self-care (01) ==
LOC: JD.ED 09:30
DX: I95.9 Hypotension, unspecified (principal); I48.91 Unspecified atrial fibrillation; I25.10 Atherosclerotic heart disease of native coronary artery without angina pectoris; I50.9 Heart failure, unspecified; E78.00 Pure hypercholesterolemia, unspecified; I25.2 Old myocardial infarction; E03.9 Hypothyroidism, unspecified; Z86.16 Personal history of COVID-19; Z79.899 Other long term (current) drug therapy; Z79.01 Long term (current) use of anticoagulants; Z79.82 Long term (current) use of aspirin
CPT/HCPCS: 36415; 71045; 80053; 83880; 84484; 85025; 93005; 96360; 99285; J3490; J7030; 93010; 99283

== ENCOUNTER 2023-01-31 12:47 | Day surgery (SDC) | payer MEDICAID, MEDICARE ==
[~2023-01-31 12:47] MED LIST: Cefuroxime 10 MG/ML SYRINGE EYELF SCH; Lidocaine 1% PF 2 ML SDV INJECT SCH; Pilocarpine 4% Ophth Soln 15 ML Bot EYELF SCH
[2023-01-31] MEDS: Brimonidine 0.2% Ophth Soln 5 ML Bottle EYELF SCH ×3 (15:05→16:26)
[2023-01-31] MEDS: Polymyxin B/Trimethoprim 10 ML Bottle EYELF SCH ×3 (15:05→16:26)
[2023-01-31] MEDS: Phenylephrine 2.5% Ophth Soln 2 ML Bot EYELF SCH ×5 (15:07→16:00)
[2023-01-31] MEDS: Tropicamide 1% Ophth Soln 15 ML Bottle EYELF SCH ×4 (15:10→15:34)
[2023-01-31] MEDS: Tetracaine HCl/PF 0.5% 4 ML Bottle EYEBOTH SCH ×4 (15:38→16:11)
[2023-01-31 17:26] VITALS: BP 90/49; PULSE 76
== END 2023-01-31 17:01 | disposition home or self-care (01) ==
LOC: JD.SDS 12:47
PROVIDERS: ATTEND Ophthalmology
DX: H25.812 Combined forms of age-related cataract, left eye (principal); I50.9 Heart failure, unspecified; I48.91 Unspecified atrial fibrillation; K21.9 Gastro-esophageal reflux disease without esophagitis; E03.9 Hypothyroidism, unspecified; I25.10 Atherosclerotic heart disease of native coronary artery without angina pectoris; I25.2 Old myocardial infarction; Z95.0 Presence of cardiac pacemaker; Z98.890 Other specified postprocedural states; Z79.899 Other long term (current) drug therapy; Z86.16 Personal history of COVID-19; Z79.890 Hormone replacement therapy; Z79.01 Long term (current) use of anticoagulants; Z79.82 Long term (current) use of aspirin
CPT/HCPCS: 66984; A9270; J0697; J3490; V2788-GY

== ENCOUNTER 2023-02-06 11:55 | Emergency (ER) | payer MEDICAID ==
[2023-02-06 11:59] VITALS: BP 116/67; PULSE 103
[2023-02-06] MEDS ORDERED: Sodium Chloride 0.9% 10 ML Syringe FLUSH PRN (12:15)
[2023-02-06] MEDS ORDERED: cefTRIAXone 2 GM in Sodium Chloride 0.9% 100 ML IV ONE (15:07)
== END 2023-02-06 16:59 | disposition home or self-care (01) ==
LOC: JD.ED 11:55
DX: J18.9 Pneumonia, unspecified organism (principal); R79.1 Abnormal coagulation profile; D64.9 Anemia, unspecified; I48.91 Unspecified atrial fibrillation; I25.10 Atherosclerotic heart disease of native coronary artery without angina pectoris; I50.9 Heart failure, unspecified; E78.00 Pure hypercholesterolemia, unspecified; I25.2 Old myocardial infarction; E03.9 Hypothyroidism, unspecified; Z86.16 Personal history of COVID-19; Z79.01 Long term (current) use of anticoagulants; Z79.899 Other long term (current) drug therapy; Z79.82 Long term (current) use of aspirin
CPT/HCPCS: 36415; 71045; 80053; 82947; 83735; 83880; 84484; 85025; 85379; 85610; 93005; 96365; 99285; J0696; J3490; 93010; 99283

== ENCOUNTER 2023-02-08 13:09 | Emergency (ER) | payer MEDICAID, MEDICARE ==
[2023-02-08 15:18] LABS: ESTIMATED GFR 80 mL/min (>60)
[2023-02-08 15:27] VITALS: PULSE 72
[2023-02-08 15:30] LABS: CORONAVIRUS COVID-19 NAA NEGATIVE (NEGATIVE)
[2023-02-08] MEDS ORDERED: Albuterol/Ipratropium 3.0-0.5 MG/3 ML Neb Soln NEB ONE (16:11)
[2023-02-08] MEDS ORDERED: Acetaminophen/HYDROcodone 325-5 MG Tab PO ONE (16:47)
[2023-02-08 17:08] VITALS: BP 103/64
[2023-02-08] MEDS ORDERED: Alum Hydrox/Mag Hydrox/Simeth 30 ML, Lidocaine 2% 15 ML PO ONE ×2 (18:49)
== END 2023-02-08 20:29 | disposition home or self-care (01) ==
LOC: JD.ED 13:09
DX: J18.9 Pneumonia, unspecified organism (principal); K21.9 Gastro-esophageal reflux disease without esophagitis; I48.91 Unspecified atrial fibrillation; I25.10 Atherosclerotic heart disease of native coronary artery without angina pectoris; E78.00 Pure hypercholesterolemia, unspecified; I25.2 Old myocardial infarction; E03.9 Hypothyroidism, unspecified; Z79.899 Other long term (current) drug therapy; Z79.01 Long term (current) use of anticoagulants; Z86.16 Personal history of COVID-19; Z20.822 Contact with and (suspected) exposure to COVID-19
CPT/HCPCS: 0241U; 36415; 71250; 80053; 83880; 84484; 85025; 85379; 86140; 93005; 94640; 99285; A9270; 93010; 99284; J7620-GY

== ENCOUNTER 2023-02-18 14:07 | Emergency (ER) | payer MEDICAID, MEDICARE ==
[2023-02-18 15:23] LABS: BASOPHILS PERCENT AUTO 0.5 % (0.1-1.2); EOSINOPHILS PERCENT AUTO 0.7 (0.7-5.8); HEMATOCRIT 28.8 % (34.1-44.9); HEMOGLOBIN 8.2 gm/dl (11.2-15.7); IMMATURE GRAN PERCENT AUTO 0.2 % (<=1.0); LYMPHOCYTES ABSOLUTE AUTO 1.39 K/mm3 (1.18-3.74); LYMPHOCYTES PERCENT AUTO 23.1 % (19.3-51.7); MEAN CORPUSCULAR HEMOGLOBIN 21.8 pg (25.6-32.2); MEAN CORPUSCULAR HGB CONC 28.5 g/dl (32.2-35.5); MEAN CORPUSCULAR VOLUME 76.6 fl (79.4-94.8); MONOCYTES PERCENT AUTO 10.1 % (4.7-12.5); NEUTROPHILS ABSOLUTE AUTO 3.95 K/mm3 (1.56-6.13); NEUTROPHILS PERCENT AUTO 65.4 % (34.0-71.1); PLATELET COUNT,PLT 343 K/mm3 (182-369); RED BLOOD CELL COUNT 3.76 M/mm3 (3.98-5.22); WHITE BLOOD CELL COUNT,WBC 6.03 K/mm3 (3.98-10.04)
[2023-02-18 15:24] LABS: BASOPHILS ABSOLUTE AUTO 0.03 K/mm3 (0.01-0.08); EOSINOPHILS ABSOLUTE AUTO 0.04 K/mm3 (0.04-0.36); IMMATURE GRAN ABSOLUTE AUTO 0.01 K/mm3 (0.00-0.10); MONOCYTES ABSOLUTE AUTO 0.61 K/mm3 (0.24-0.36)
[2023-02-18 15:55] LABS: ANION GAP 12.1 (5-15); CARBON DIOXIDE,CO2 23 mEq/L (21-32); CHLORIDE,CL 107 mEq/L (98-107); POTASSIUM,K 4.1 mEq/L (3.5-5.1); SODIUM,NA 138 mEq/L (136-145)
[2023-02-18 15:56] LABS: ALANINE AMINOTRANSFERASE,ALT 50 U/L (14-59); ALBUMIN 3.1 g/dl (3.4-5.0); ALKALINE PHOSPHATASE 80 U/L (46-116); ASPARTATE AMNIOTRANSFERASE,AST 35 U/L (15-37); BILIRUBIN TOTAL 0.8 mg/dL (0.2-1.0); BLOOD UREA NITROGEN,BUN 11 mg/dL (7-18); CALCIUM 8.1 mg/dL (8.5-10.1); ESTIMATED GFR 61 mL/min (>60); GLUCOSE RANDOM 93 mg/dL (70-99); PROTEIN TOTAL,TP 6.3 g/dl (6.4-8.2); TROPONIN I HIGH SENSITIVITY 24 pg/mL (<=51)
[2023-02-18 17:27] LABS: SLIDE REVIEW ABNORMAL SMEAR
[2023-02-18 20:40] VITALS: BP 90/69; PULSE 77
== END 2023-02-18 20:01 | disposition home or self-care (01) ==
LOC: JD.ED 14:07
DX: R07.89 Other chest pain (principal); I48.91 Unspecified atrial fibrillation; I25.10 Atherosclerotic heart disease of native coronary artery without angina pectoris; E78.00 Pure hypercholesterolemia, unspecified; I25.2 Old myocardial infarction; E03.9 Hypothyroidism, unspecified; Z95.0 Presence of cardiac pacemaker; Z79.899 Other long term (current) drug therapy; Z79.82 Long term (current) use of aspirin; Z86.16 Personal history of COVID-19; Z87.01 Personal history of pneumonia (recurrent)
CPT/HCPCS: 36415; 71045; 71045-26; 80053; 84484; 85025; 93005; 93010; 99283; 99285

== ENCOUNTER 2023-02-25 22:56 | Emergency (ER) | payer MEDICAID, MEDICARE ==
[2023-02-25] MEDS ORDERED: Sodium Chloride 0.9% 10 ML Syringe FLUSH PRN (23:47)
[2023-02-25 23:48] VITALS: PULSE 97
[2023-02-25] MEDS ORDERED: Famotidine 20 MG/2 ML SDV IVPUSH ONE (23:48)
[2023-02-25] MEDS ORDERED: HYDROmorphone 0.5 MG/0.5 ML Syringe IVPUSH ONE (23:49)
[2023-02-25] MEDS ORDERED: Iopamidol 612 MG/ML 50 ML SDV IVPUSH ONE (23:53)
[2023-02-26 00:26] LABS: BASOPHILS ABSOLUTE AUTO 0.02 K/mm3 (0.01-0.08); BASOPHILS PERCENT AUTO 0.2 % (0.1-1.2); EOSINOPHILS ABSOLUTE AUTO 0.02 K/mm3 (0.04-0.36); EOSINOPHILS PERCENT AUTO 0.2 (0.7-5.8); HEMATOCRIT 32.9 % (34.1-44.9); HEMOGLOBIN 9.3 gm/dl (11.2-15.7); IMMATURE GRAN ABSOLUTE AUTO 0.04 K/mm3 (0.00-0.10); IMMATURE GRAN PERCENT AUTO 0.4 % (<=1.0); LYMPHOCYTES ABSOLUTE AUTO 1.22 K/mm3 (1.18-3.74); LYMPHOCYTES PERCENT AUTO 11.1 % (19.3-51.7); MEAN CORPUSCULAR HEMOGLOBIN 22.9 pg (25.6-32.2); MEAN CORPUSCULAR HGB CONC 28.3 g/dl (32.2-35.5); MEAN PLATELET VOLUME 11.7 fl (9.4-12.3); MONOCYTES ABSOLUTE AUTO 1.54 K/mm3 (0.24-0.36); MONOCYTES PERCENT AUTO 14.1 % (4.7-12.5); NEUTROPHILS ABSOLUTE AUTO 8.12 K/mm3 (1.56-6.13); PLATELET COUNT,PLT 348 K/mm3 (182-369); RED BLOOD CELL COUNT 4.06 M/mm3 (3.98-5.22); WHITE BLOOD CELL COUNT,WBC 10.96 K/mm3 (3.98-10.04)
[2023-02-26 00:58] LABS: ALANINE AMINOTRANSFERASE,ALT 527 U/L (14-59); ALBUMIN 3.3 g/dl (3.4-5.0); ALKALINE PHOSPHATASE 146 U/L (46-116); ANION GAP 13.2 (5-15); ASPARTATE AMNIOTRANSFERASE,AST 446 U/L (15-37); BILIRUBIN TOTAL 2.8 mg/dL (0.2-1.0); BLOOD UREA NITROGEN,BUN 13 mg/dL (7-18); BUN/CREATININE RATIO 14.4 (14-18); C-REACTIVE PROTEIN 4.4 mg/dL (<1.0); CALCIUM 8.4 mg/dL (8.5-10.1); CARBON DIOXIDE,CO2 26 mEq/L (21-32); CHLORIDE,CL 99 mEq/L (98-107); CREATININE 0.9 mg/dL (0.55-1.02); ESTIMATED GFR 69 mL/min (>60); GLUCOSE RANDOM 123 mg/dL (70-99); LIPASE 59 U/L (73-393); PROTEIN TOTAL,TP 6.7 g/dl (6.4-8.2); SODIUM,NA 134 mEq/L (136-145); TROPONIN I HIGH SENSITIVITY 34 pg/mL (<=51)
[2023-02-26 01:15] LABS: POTASSIUM,K 4.2 mEq/L (3.5-5.1)
[2023-02-26 01:19] LABS: SLIDE REVIEW ABNORMAL SMEAR
[2023-02-26] MEDS ORDERED: cefTRIAXone 2 GM in Sodium Chloride 0.9% 100 ML IV ONE (01:30)
[2023-02-26] MEDS ORDERED: HYDROmorphone 0.5 MG/0.5 ML Syringe IVPUSH ONE (01:30)
[2023-02-26] MEDS ORDERED: Piperacillin/Tazobactam 4.5 GM in Sodium Chloride 0.9% 100 ML IV ONE ×2 (02:05→08:30)
[2023-02-26 02:35] LABS: INR 2.62; PROTHROMBIN TIME 26.1 SECONDS (9.7-12.0)
[2023-02-26] MEDS ORDERED: HYDROmorphone 0.5 MG/0.5 ML Syringe IVPUSH PRN (04:13)
[2023-02-26] MEDS ORDERED: HYDROmorphone 0.5 MG/0.5 ML Syringe ONE (04:17)
[2023-02-26] MEDS ORDERED: Ondansetron 4 MG/2 ML SDV IVPUSH ONE (09:22)
[2023-02-26 09:27] LABS: BASOPHILS ABSOLUTE AUTO 0.01 K/mm3 (0.01-0.08); BASOPHILS PERCENT AUTO 0.1 % (0.1-1.2); EOSINOPHILS ABSOLUTE AUTO 0.04 K/mm3 (0.04-0.36); EOSINOPHILS PERCENT AUTO 0.3 (0.7-5.8); HEMOGLOBIN 9.3 gm/dl (11.2-15.7); IMMATURE GRAN ABSOLUTE AUTO 0.06 K/mm3 (0.00-0.10); IMMATURE GRAN PERCENT AUTO 0.5 % (<=1.0); LYMPHOCYTES ABSOLUTE AUTO 1.27 K/mm3 (1.18-3.74); LYMPHOCYTES PERCENT AUTO 10.7 % (19.3-51.7); MEAN CORPUSCULAR HEMOGLOBIN 23.1 pg (25.6-32.2); MEAN CORPUSCULAR HGB CONC 28.2 g/dl (32.2-35.5); MEAN CORPUSCULAR VOLUME 81.9 fl (79.4-94.8); MEAN PLATELET VOLUME 11.4 fl (9.4-12.3); MONOCYTES ABSOLUTE AUTO 1.83 K/mm3 (0.24-0.36); MONOCYTES PERCENT AUTO 15.4 % (4.7-12.5); PLATELET COUNT,PLT 292 K/mm3 (182-369); RED BLOOD CELL COUNT 4.03 M/mm3 (3.98-5.22); WHITE BLOOD CELL COUNT,WBC 11.91 K/mm3 (3.98-10.04)
[2023-02-26 10:00] LABS: A/G RATIO 0.9 (1-2); ALANINE AMINOTRANSFERASE,ALT 523 U/L (14-59); ALBUMIN 3.1 g/dl (3.4-5.0); ALKALINE PHOSPHATASE 146 U/L (46-116); ANION GAP 14.1 (5-15); ASPARTATE AMNIOTRANSFERASE,AST 391 U/L (15-37); BILIRUBIN TOTAL 2.6 mg/dL (0.2-1.0); BLOOD UREA NITROGEN,BUN 16 mg/dL (7-18); CALCIUM 8.1 mg/dL (8.5-10.1); CARBON DIOXIDE,CO2 23 mEq/L (21-32); CHLORIDE,CL 101 mEq/L (98-107); ESTIMATED GFR 61 mL/min (>60); GLUCOSE RANDOM 122 mg/dL (70-99); LIPASE 72 U/L (73-393); POTASSIUM,K 4.1 mEq/L (3.5-5.1); PROTEIN TOTAL,TP 6.4 g/dl (6.4-8.2); SODIUM,NA 134 mEq/L (136-145)
[2023-02-26 10:55] LABS: SLIDE REVIEW ABNORMAL SMEAR
[2023-02-26 14:31] VITALS: BP 103/64
== END 2023-02-26 14:09 ==
LOC: JD.ED 22:56
DX: K83.09 Other cholangitis (principal); K86.89 Other specified diseases of pancreas; I48.91 Unspecified atrial fibrillation; I25.10 Atherosclerotic heart disease of native coronary artery without angina pectoris; I50.9 Heart failure, unspecified; E78.00 Pure hypercholesterolemia, unspecified; I25.2 Old myocardial infarction; E03.9 Hypothyroidism, unspecified; Z86.16 Personal history of COVID-19; Z79.82 Long term (current) use of aspirin; Z79.899 Other long term (current) drug therapy; Z79.01 Long term (current) use of anticoagulants
CPT/HCPCS: 36415; 71045; 74177; 80053; 83605; 83690; 84484; 85025; 85610; 86140; 87040; 93005; 96365; 96366; 96367; 96375; 96376; 99285; J0696; J1170; J2405; J2543; J3490; Q9967; 93010